=== PATIENT | female | born 1985 | race Caucasian/White ===

== ENCOUNTER 2018-01-28 22:41 | Emergency (ER) | payer OTHER ==
[~2018-01-28] VITALS: Ht 162.6 cm; Wt 69.4 kg
[~2018-01-28 22:41] MED LIST: CELEXA20 MG PO; GEODON20 MG PO
== END 2018-01-28 23:27 | disposition home or self-care (01) ==
LOC: ER 22:41
DX: L02.213 Cutaneous abscess of chest wall (principal)
CPT/HCPCS: 99282

== ENCOUNTER 2023-04-21 18:19 | Emergency (ER) | payer OTHER ==
[~2023-04-21] VITALS: Ht 162.6 cm; Wt 72.6 kg
[2023-04-21] MEDS ORDERED: BACTRIM DS TAB1 EACH PO (20:37)
[2023-04-21 20:46] VITALS: BP 110/70; PULSE 84; RESP 18; O2SAT 100
== END 2023-04-21 20:46 | disposition home or self-care (01) ==
LOC: FSED 18:22
DX: R06.00 Dyspnea, unspecified (principal); R07.9 Chest pain, unspecified; F20.9 Schizophrenia, unspecified; F17.210 Nicotine dependence, cigarettes, uncomplicated
CPT/HCPCS: 71046; 80053; 80307; 81003; 81025; 82553; 84484; 85025; 93005; 99284